=== PATIENT | female | born 1995 | race Two or more races ===

== ENCOUNTER 2019-03-10 00:12 | Observation (INO) | payer OTHER ==
[~2019-03-10] VITALS: Ht 165.1 cm; Wt 84.4 kg
[2019-03-10] MEDS ORDERED: PREN-153 OR (00:43)
[2019-03-10] MEDS ORDERED: LACTATED RINGER'S 1,000 ML IV ONE (01:05)
[2019-03-10] MEDS ORDERED: LACTATED RINGER'S 1,000 ML IV SCH (01:05)
[2019-03-10] MEDS ORDERED: TERBUTALINE SULFATE 1 MG/ML 1ML VIAL SC ONE (01:09)
[2019-03-10] MEDS ORDERED: TERBUTALINE SULFATE 1 MG/ML 1ML VIAL SC SCH (01:15)
[2019-03-10] MEDS ORDERED: BETAMETHASONE ACET (6MG/ML) 5ML VIAL IM ONE (01:15)
[2019-03-10] MEDS ORDERED: ceFAZolin 1GM/50ML 50 ML IV ONE ×2 (01:15→01:16)
[2019-03-10] MEDS ORDERED: BETAMETHASONE ACET (6MG/ML) 5ML VIAL ONE (01:16)
[2019-03-10 01:18] LABS: Urine Bacteria NONE SEEN /hpf (None Seen); Urine Blood Negative /uL (Negative); Urine Mucus FEW (None Seen); Urine Specific Gravity 1.036 (1.001-1.035); Urine WBC 4 /hpf (0 - 5)
[2019-03-10 01:41] LABS: Alcohol, Urine < 3.0 mg/dL (0-5); Amphetamine Screen, Urine NEGATIVE (NEGATIVE); Barbiturate Scree,Urine NEGATIVE (NEGATIVE); Benzodiazephine Screen, Urine NEGATIVE (NEGATIVE); Cannabinoid Screen, Urine NEGATIVE (NEGATIVE); Cocaine Screen, Urine NEGATIVE (NEGATIVE); Opiate Scree,Urine NEGATIVE (NEGATIVE); Phencyclidine Screen, Urine NEGATIVE (NEGATIVE)
[2019-03-10 02:40] LABS: Basophils # (auto) 0.1 uL; Basophils % (auto) 0.4 % (0.0-2.0); Eosinophils # (auto) 0 uL; Eosinophils % (auto) 0.1 % (0.0-7.0); Hematocrit 27.9 % (36.0-46.0); Hemoglobin 9.7 g/dL (12.2-16.2); Lymphocytes # (auto) 2.3 uL; Lymphocytes % (auto) 11.6 % (10.0-50.0); Mean Corpuscular Hemoglobin 28.9 pg (28.0-32.0); Mean Corpuscular Hgb Conc. 34.7 g/dL (32.0-36.0); Mean Corpuscular Volume 83.3 fL (80.0-100.0); Monocytes # (auto) 1.2 uL; Monocytes % (auto) 6.2 % (0.0-12.0); Neutrophils # (auto) 16.1 uL; Neutrophils % (auto) 81.7 % (37.0-80.0); Platelet Count (auto) 238 10^3/uL (140-450); Red Blood Cells 3.35 10^6/uL (4.0-5.20); White Blood Cell 19.7 10^3/uL (4.4-10.8)
== END 2019-03-10 03:27 | disposition left against medical advice (07) | DRG 833 ==
LOC: LDRP 00:12
PROVIDERS: ADMIT Specialist; ATTEND Specialist
DX: O26.893 Other specified pregnancy related conditions, third trimester (principal); Z3A.36 36 weeks gestation of pregnancy
CPT/HCPCS: 36415; 59025; 76700; 80307; 81001; 81002; 85025; 96365; 96372; G0378; J0690; J0702; J3105; 96361; 96366